=== PATIENT | female | born 1955 | race Caucasian/White ===

== ENCOUNTER 2017-08-05 13:03 | Emergency (ER) | payer MEDICARE ==
[2017-08-05 13:38] VITALS: BP 134/89
--- NOTE | 2017-08-05 14:05 | UC ---
Dental HPI - HPI Summary HPI Summary: Patient presents with complaints of right lower dental pain, caries and reports swelling of the lower gums and jaw-line. She states she has applied for Medicaid and is waiting for here back before she can see the dentist. She denies any fever, chills, inability to hand her secretions, nausea, vomiting, or diarrhea. - History of Current Complaint Chief Complaint: UCDentalProblem Stated Complaint: DENTAL COMPLAINT Time Seen by Provider: 08/05/17 13:34 Hx Obtained From: Patient ?: No Onset/Duration: Gradual Onset, Lasting Days Severity: Mild Aggravating Factor(s): Cold, Chewing Alleviating Factor(s): OTC Meds - Allergies/Home Medications Allergies/Adverse Reactions: Allergies Allergy/AdvReac Type Severity Reaction Status Date / Time No Known Allergies Allergy Verified 08/05/17 13:38 Home Medications: Home Medications Naproxen Sodium [Naproxen Sodium 220 mg] 220 mg PO BID PRN 08/05/17 [History Confirmed 08/05/17] PMH/Surg Hx/FS Hx/Imm Hx Previously Healthy: Yes - Surgical History Surgical History: Yes Surgery Procedure, Year, and Place: bunion off right foot - Family History Known Family History: Positive: Hypertension - Social History Occupation: Unemployed Lives: Alone Alcohol Use: None Substance Use Type: None Smoking Status (MU): Never Smoked Tobacco Have You Smoked in the Last Year: No - Immunization History Most Recent Influenza Vaccination: none Review of Systems Constitutional: Negative Skin: Negative Eyes: Negative ENT: Dental Pain Respiratory: Negative Cardiovascular: Negative Gastrointestinal: Negative Genitourinary: Negative Motor: Negative Neurovascular: Negative Musculoskeletal: Negative Neurological: Negative Psychological: Negative Is Patient Immunocompromised?: No All Other Systems Reviewed And Are Negative: Yes Physical Exam Triage Information Reviewed: Yes Appearance: Well-Appearing Vital Signs: Initial Vital Signs Temp 97.7 F 08/05/17 13:34 Pulse 79 08/05/17 13:34 Resp 16 08/05/17 13:34 BP 134/89 08/05/17 13:34 Pulse Ox 99 08/05/17 13:34 Vital Signs Reviewed: Yes Eye Exam: Normal ENT: Positive: Dental tenderness, Other - the right lower dentician are in poor repair with dental caries presents. soft tissue swelling noted of outter gum tissue with no flucuance detected. Tenderness on palpation of gum tissue. No tendnerness when palpaiton of floor of mouth under the tongue. pharynx raised midline on phonation. Dental Exam: Normal Neck exam: Normal Neck: Positive: 1 Respiratory Exam: Normal Cardiovascular Exam: Normal Abdominal Exam: Normal Musculoskeletal Exam: Normal Neurological Exam: Normal Psychological Exam: Normal Skin Exam: Normal Dental Complaint Course/Dx - Course Course Of Treatment: Patient presents with dental abscess and cavities. Normal vital signs, and no evidence of lugwigs angina. She was RX: penvk 500 mg by mouth QID, norco and discharge to follow up with dentist. - Differential Dx/Diagnosis Differential Diagnosis/Dx: Dental Abscess, Dental Caries Provider Diagnoses: dental abscess. dental caries Discharge - Discharge Plan Condition: Stable Disposition: HOME Prescriptions: HYDROcodone/ACETAMIN 5-325 MG* [[place] 5-325 TAB*] 1 tab PO Q6H PRN #14 tab MDD 4 PRN Reason: dental abscess Penicillin VK 500 MG TAB(NF) [Penicillin VK 500 mg Tab] 500 mg PO QID #40 tab Patient Education Materials: Dental Abscess (ED) Referrals: Jose Meadows MD [Primary Care Provider] -
== END 2017-08-05 13:55 | disposition home or self-care (01) ==
LOC: UCEAST 13:03
DX: K04.7 Periapical abscess without sinus (principal); K02.9 Dental caries, unspecified
CPT/HCPCS: 99212; G0463